=== PATIENT | male | born 1965 | race Caucasian/White ===

== ENCOUNTER 2019-06-17 15:25 | Emergency (ER) | payer OTHER, SELFPAY ==
[2019-06-17 15:43] VITALS: BP 129/89; PULSE 87; RESP 18; TEMP 37; O2SAT 99; BMI 28.8
--- NOTE | 2019-06-17 17:01 | PC.NURSE ---
Catheter flushed of small clots. Page now draining freely. Pt reports increased comfort.
[2019-06-17 17:06] VITALS: BP 122/89; PULSE 80; RESP 18; O2SAT 96
[2019-06-17 17:52] LABS: Appearance Urine UA CLOUDY; Bilirubin Urine UA NEGATIVE (NEGATIVE); Color Urine UA YELLOW; Glucose Urine UA NEGATIVE (Negative); Ketones Urine UA NEGATIVE (NEGATIVE); Leukocyte Esterase Urine UA 2+ (NEGATIVE); Nitrite Urine UA POSITIVE (Negative); Occult Blood Urine UA 3+ (Negative); Protein Urine UA 2+ (Negative); Urobilinogen Urine UA 0.2 E.U./dL (0.2); pH Urine UA 5.5 (4.5-8.0)
[2019-06-17 18:00] LABS: Bacteria Urine Few (2-10); Culture Indicated Urine Specimen Cultured; RBC Urine 30-100/HPF (0-5/HPF); Squamous Epithelial Cell Urine 1-5 /HPF (0-5/HPF); WBC Urine 30-100/HPF (0-5/HPF)
--- NOTE | 2019-06-17 22:27 | ED_ITS ---
HPI - Male Genitourinary <IVON Martinez - Last Filed: 06/17/19 23:04> General Chief complaint: Urogenital-Male Stated complaint: surgical catheter he thinks is plugged Time Seen by Provider: 06/17/19 17:23 Source: patient Mode of arrival: Family Vehicle Limitations: no limitations History of Present Illness HPI Narrative: This is a 54-year-old gentleman, nonsmoker, who presents to ED with spouse with chief complain of urinary retention and discomfort. The patient reports had prostate surgery calls, Rezum procedure 6 weeks ago at [facility] by Dr. Mahoney. He was treated with 3 rounds of antibiotic medication for prostatitis in the past. Two days ago his previous indwelling Page catheter has removed and new 1 has been inserted for difficulty with draining. Patient reports each time the new Page catheter is inserted, patient has hematuria initially. Afterwards, patient usually has very dark urine with some sediment. Patient denies fever, chills, nausea or vomiting or flank pain. Patient noticed not well draining Page catheter and a leg bag with red clots and flakes today with severe bladder discomfort. Patient reports had for 5 UA test has been done in the past with each time showing no growth from urine culture. Patient has a history of kidney stone which he needed lithotripsy surgery. Patient denies any recent kidney function test. When patient was evaluated his Page catheter has been irrigated by nursing staff after bladder scan has been done and showing about 400 mL of urine in his bladder. After this, the Page catheter has been draining well with slightly darker urine. Related Data Home Medications Medication Instructions Recorded Confirmed cyclobenzaprine 5 mg PO TID PRN 06/17/19 06/17/19 hydromorphone 3 mg SD SEE INSTRUCTIONS PRN 06/17/19 lorazepam 1 mg PO TID PRN 06/17/19 06/17/19 tamsulosin 0.8 mg PO DAILY 06/17/19 06/17/19 Previous Rx's Medication Instructions Recorded rizatriptan 10 mg tablet 10 mg PO ONCE #10 tab 12/14/18 Allergies Allergy/AdvReac Type Severity Reaction Status Date / Time turner Allergy Mild ITCHING Verified 06/17/19 15:52 Review of Systems <IVON Martinez - Last Filed: 06/17/19 23:04> Review of Systems Narrative: General: Denies fever, chills, fatigue, malaise, sweats. HEENT: Denies sinus pain, ear pain, sore throat, difficulty swallowing, dizziness. Respiratory: Denies dyspnea, cough, wheezing, hemoptysis, sputum. Cardiovascular: Denies chest pain, palpitations, orthopnea, edema. Gastrointestinal: Denies nausea, vomiting, abdominal pain, diarrhea, constipation, melena. : See HPI Musculoskeletal: Denies weakness, joint pain or bony pain. Skin: Denies rash, skin lesions, or other. Neurologic: Denies weakness, headache, numbness, change in speech, confusion, seizures, incoordination. Psychiatric: No concerning psychosocial issues. 12-point review of systems is negative except for those stated above. Patient History <IVON Martinez - Last Filed: 06/17/19 23:04> Medical History Bladder stone (Acute) Kidney stone (Acute) Surgical History H/O lithotripsy (Acute) History of prostate surgery (Acute) Social History Smoking Status: Never smoker Smoking Status: Never smoker alcohol intake frequency: 0-2 drinks per day Substance Use Type: marijuana Exam <IVON Martinez - Last Filed: 06/17/19 23:04> Narrative Exam Narrative: General appearance: well developed, well nourished, in no acute distress. Head: normocephalic, atraumatic, no scalp lesions, non-tender. ENT: Bilateral auditory canals and tympanic membranes clear. Hearing grossly intact. Nose without bleeding, purulent discharge, septal hematoma or deviation. Turbinate without erythema or swelling. Facial sinuses nontender to palpate. Mucous membrane moist, no mucosal lesion. Throat without erythema, tonsillar hypertrophy or exudate. Uvula in midline, airway patent. Neck/Thyroid: neck supple, full range of motion, no visible masses or meningeal signs. No JVD, non-tender without lymphadenopathy. Skin: no suspicious rashes, lesions over visible areas. Warm and dry and appropriate color for ethnicity. Heart: no clubbing, no cyanosis, no edema. S1 and S2 normal. RRR w/o murmurs, clicks, or bruits. Lungs: Breathing even and unlabored. No stridor. No accessory muscles used. Able to speak in full sentences. Chest: normal shape and expansion. Abdomen: non-obese, non-distended. Back: No CVA or flank pain. Neurologic: alert and oriented. Cognitive exam, ASSISTANCE REPRESENTATIVE and PNS grossly intact on informal exam. Psych: good eye contact, normal affect. Initial Vital Signs Initial Vital Signs: Vital Signs Temperature 98.6 F 06/17/19 15:43 Pulse Rate 87 06/17/19 15:43 Respiratory Rate 18 06/17/19 15:43 Blood Pressure 129/89 06/17/19 15:43 Pulse Oximetry 99 06/17/19 15:43 <Frida Schmid DO - Last Filed: 06/18/19 08:05> Initial Vital Signs Initial Vital Signs: Vital Signs Temperature 98.6 F 06/17/19 15:43 Pulse Rate 87 06/17/19 15:43 Respiratory Rate 18 06/17/19 15:43 Blood Pressure 129/89 06/17/19 15:43 Pulse Oximetry 99 06/17/19 15:43 Scores <IVON Martinez - Last Filed: 06/17/19 23:04> GCS [place] coma scale eye opening: Spontaneous [place] coma scale verbal response: Orientated [place] coma scale motor response: Obey commands [place] coma scale total score: 15 Course <IVON Martinez - Last Filed: 06/17/19 23:04> Orders Ordered: ED Orders 06/17/19 17:44 Urinalysis and Microscopic Stat Urine Culture Stat Vital Signs Vital signs: Vital Signs - 8 hr 06/17/19 15:43 06/17/19 17:06 Temperature 98.6 F Pulse Rate 87 80 Respiratory Rate 18 18 Blood Pressure 129/89 Blood Pressure [Left Arm] 122/89 Pulse Oximetry 99 96 <Frida Schmid DO - Last Filed: 06/18/19 08:05> Orders Ordered: ED Orders 06/17/19 17:44 Urinalysis and Microscopic Stat Urine Culture Stat Vital Signs Vital signs: Vital Signs - 8 hr 06/17/19 15:43 06/17/19 17:06 Temperature 98.6 F Pulse Rate 87 80 Respiratory Rate 18 18 Blood Pressure 129/89 Blood Pressure [Left Arm] 122/89 Pulse Oximetry 99 96 MDM - Male Genitourinary <IVON Martinez - Last Filed: 06/17/19 23:04> Differential Diagnosis Differential diagnosis: Likely urinary tract infection and acute retention of urine Medical Records Attestation: I reviewed the patient's medical records. Lab Data Attestation: I reviewed the patient's lab results. Labs: Lab Results 06/17/19 Range/Units 17:44 Urine Color Yellow Urine Appearance Cloudy Urine pH 5.5 (4.5-8.0) Ur Specific [place] 1.010 (1.000-1.035) Urine Protein 2+ H (Negative) Urine Glucose (UA) Negative (Negative) g/dL Urine Ketones Negative (NEGATIVE) Urine Occult Blood 3+ H (Negative) Urine Nitrate Positive (Negative) Urine Bilirubin Negative (NEGATIVE) Urine Urobilinogen 0.2 (0.2) E.U./dL Ur Leukocyte Esterase 2+ H (NEGATIVE) Urine RBC 30-100/hpf H (0-5/HPF) Urine WBC 30-100/hpf H (0-5/HPF) Ur Squamous Epith Cells 1-5 /hpf (0-5/HPF) Urine Bacteria Few (2-10) H (None) Ur Culture Indicated? Specimen cultured MDM Narrative Medical decision making narrative: This is a 54-year-old gentleman who presents to ED with indwelling Page catheter and leg bag which has not been draining well with bladder discomfort. Patient has a history of prostatitis and had surgery, Rezum, procedure at [facility] by Dr. Mahoney, urolgoist about 6 wks ago. Patient had new indwelling Page catheter inserted 2 days ago due to catheter obstruction. Since then, patient has had increasing blood clots, sediments, dark urine. Patient denies constitutional symptoms or flank pain. Patient's Page catheter had irrigated by nursing staff after bladder scanner showed about 400 mL of urine in the bladder. Patient reports relief of discomfort and draining slightly dark colored urine in Page bag. Patient declined kidney function test today stating has a follow-up appointment with Dr. Mahoney on 06/28/2019. Patient and spouse have been managing and changing leg back to Page bag during nights using aseptic technique. Patient requesting to dis charge to home with Page catheter irrigation kit. I discussed in detail that aseptic technique is to be utilized for this to prevent severe bladder infection and to use sterile water for this. Patient and spouse verbalized understanding. Urine sample from leg bag has been obtained and sent out to lab for formal UA and culture at the time of dicharge. Urine culture is pending and patient was i nformed that he will get a phone call if urine culture comes back positive and needs antibiotic medication treatment and patient verbalized understanding. Strict return precautions were discussed with the patient and advised to follow up with urologist, Dr. Mahoney as scheduled. Patient and spouse verbalized understanding and agrees with the treatment plan. Addendum: UA test shows +nitrate and 2+ leukocytes, 30-100/hpf of WBC and RBC. <Frida Schmid, - Last Filed: 06/18/19 08:05> Lab Data Labs: Lab Results 06/17/19 Range/Units 17:44 Urine Color Yellow Urine Appearance Cloudy Urine pH 5.5 (4.5-8.0) Ur Specific [place] 1.010 (1.000-1.035) Urine Protein 2+ H (Negative) Urine Glucose (UA) Negative (Negative) g/dL Urine Ketones Negative (NEGATIVE) Urine Occult Blood 3+ H (Negative) Urine Nitrate Positive (Negative) Urine Bilirubin Negative (NEGATIVE) Urine Urobilinogen 0.2 (0.2) E.U./dL Ur Leukocyte Esterase 2+ H (NEGATIVE) Urine RBC 30-100/hpf H (0-5/HPF) Urine WBC 30-100/hpf H (0-5/HPF) Ur Squamous Epith Cells 1-5 /hpf (0-5/HPF) Urine Bacteria Few (2-10) H (None) Ur Culture Indicated? Specimen cultured Discharge Plan Departure Patient Disposition: Home Clinical Impression: Obstruction of indwelling urinary catheter Qualifiers: Encounter type: initial encounter Qualified Code(s): T83.091A - Other mechanical complication of indwelling urethral catheter, initial encounter Discharge Date/Time: 06/17/19 17:58 Instructions: How to Care for Your Page Catheter -- Male Activity Restrictions/Additional Instructions: You have been diagnosed with [indwelling Page catheter obstruction. After the irrigation, your symptoms have improved.]. What to do: *Take your medications as directed. No new medications to go home with. As we discussed, please take precautions to prevent infection when you have to irrigate Page catheter at home as needed for no urine output for prolonged time with bladder discomfort. We will send you home with irrigation kit for home use. Please use a sterile water for this. You'll get a phone call if urine culture comes back positive for treatment with antibiotic medication. *Follow up with your primary care provider in 2-3 days, call for an appointment. Otherwise, please follow-up with urologist at [facility] as scheduled. Let them know you were seen in the ED and that we asked you to be seen in follow up. At some point, please follow up with your doctor for kidney function test which you declined today. *Return to ED if you have any new, worsening, or concerning symptoms, such as [increasing pain, fever, chills, nausea or vomiting, unable to tolerate fluids, or any acute concerns]. Prescriptions: No Action rizatriptan 10 mg tablet 10 mg PO ONCE Qty: 10 RF: 0 tamsulosin 0.4 mg capsule 0.8 mg PO DAILY RF: 0 lorazepam 1 mg tablet 1 mg PO TID PRN (Reason: pain) RF: 0 cyclobenzaprine 5 mg tablet 5 mg PO TID PRN (Reason: pain) RF: 0 hydromorphone 3 MG suppository 3 mg SD SEE INSTRUCTIONS PRN (Reason: as directed) RF: 0 Referrals: Pacheco Thomas MD [Primary Care Provider] -
== END 2019-06-17 17:58 | disposition home or self-care (01) ==
PROVIDERS: Emergency Provider Nurse Practitioner Family; Family Provider Family Medicine; PCP Family Medicine
DX: T83.091A Other mechanical complication of indwelling urethral catheter, initial encounter (principal)
CPT/HCPCS: 51700; 51798; 81001; 87077; 87086; 87147; 87186; 99283; 99284

== ENCOUNTER 2019-07-07 11:14 | Emergency (ER) | payer OTHER, SELFPAY ==
[2019-07-07 11:20] VITALS: BP 177/98; PULSE 83; RESP 18; TEMP 37.1; O2SAT 100; BMI 28.8
--- NOTE | 2019-07-07 11:49 | PC.NURSE ---
Doris arrives with indwelling cath in place. Patient reports leaking around catheter this morning. Concerns of catheter not working properly. tried flushing at home. Bladder scan shower approx 57ml in bladder. Irrigated and able to get fluid back, light pink blood tinged. Patient denies a sense of retention I feel a slight urge to go over the last few day
[2019-07-07 12:34] VITALS: BP 160/72; PULSE 68; RESP 16; O2SAT 99
--- NOTE | 2019-07-07 18:42 | ED_ITS ---
HPI - Male Genitourinary General Chief complaint: Urogenital-Male Stated complaint: cath is plugged Time Seen by Provider: 07/07/19 11:19 Source: patient and family Mode of arrival: Family Vehicle Limitations: no limitations History of Present Illness HPI Narrative: 54-year-old male nondrinker with extensive urologic history and urology at both [facility] in [facility] presents with a Page catheter in place stating that it has been difficult to drain and after multiple attempts to flush little urine comes out. The patient otherwise feels fine and denies any nausea, vomiting or fever or chills. He states that he frequently gets bladder irritation resulting in clot formation as a consequence of taking migraine medications which he recently did. MD Complaint: other Onset (ago): hour(s) Duration: constant Severity: mild Associated symptoms: Reports denies other symptoms Related Data Home Medications Medication Instructions Recorded Confirmed cyclobenzaprine 5 mg PO TID PRN 06/17/19 07/07/19 hydromorphone 3 mg MA SEE INSTRUCTIONS PRN 06/17/19 lorazepam 1 mg PO TID PRN 06/17/19 06/17/19 tamsulosin 0.8 mg PO DAILY 06/17/19 07/07/19 sulfamethoxazole-trimethoprim 1 tab PO BID 07/07/19 07/07/19 Previous Rx's Medication Instructions Recorded rizatriptan 10 mg tablet 10 mg PO ONCE #10 tab 12/14/18 Allergies Allergy/AdvReac Type Severity Reaction Status Date / Time turner Allergy Mild ITCHING Verified 07/07/19 11:36 sulfamethoxazole AdvReac Migraine Verified 07/07/19 11:36 [From Bactrim] trimethoprim [From Bactrim] AdvReac Migraine Verified 07/07/19 11:36 Review of Systems Constitutional Constitutional: Denies chills, Denies fatigue, Denies fever(s), Denies frequent falls, Denies lethargy and Denies weakness Eyes Eyes: Denies change in vision, Denies eye discharge, Denies irritation and Denies loss of vision ENT Ears, Nose, Mouth, and Throat: Denies change in voice, Denies dizziness, Denies neck pain, Denies sore throat and Denies throat swelling Cardiovascular Cardiovascular: Denies chest pain, Denies irregular heart rhythm, Denies lightheadedness, Denies palpitations, Denies dyspnea, Denies dyspnea on exertion and Denies orthopnea Respiratory Respiratory: Denies cough, Denies dyspnea, Denies dyspnea on exertion and Denies wheezing Gastrointestinal Gastrointestinal: Denies abdominal pain, Denies change in bowel habits, Denies diarrhea, Denies nausea and Denies vomiting Genitourinary Genitourinary: Denies hematuria, Denies flank pain, Denies urinary incontinence and Denies urinary urgency Comments: Page catheter problem Musculoskeletal Musculoskeletal: Denies back pain, Denies muscle weakness, Denies neck pain, Denies numbness and Denies tingling Integumentary/Breasts Skin/Breast: Denies pruritus, Denies erythema, Denies rash and Denies wounds Neurologic Neurologic: Denies behavioral changes, Denies confusion, Denies dizziness, Denies frequent falls, Denies loss of vision, Denies numbness, Denies tingling and Denies weakness Psychiatric Psychiatric: Denies anxiety, Denies behavioral changes, Denies confusion, Denies depression, Denies homicidal ideation and Denies suicidal ideation Endocrine Endocrine: Denies fatigue, Denies flushing and Denies palpitations Hematologic/Lymphatic Hematologic/Lymphatic: Denies easy bruising Allergic/Immunologic Allergic/Immunologic: Denies urticaria, Denies throat swelling and Denies wheezing Patient History Medical History Bladder stone (Acute) Kidney stone (Acute) Surgical History H/O lithotripsy (Acute) History of prostate surgery (Acute) Social History Smoking Status: Never smoker Smoking Status: Never smoker alcohol intake frequency: 0-2 drinks per day Substance Use Type: marijuana Exam Narrative Exam Narrative: GEN: AOx3 and in mild distress, 54-year-old appears stated age EYES: Pupils are equal, round, and reactive to light and accommodation. Extraoccular muscles are intact bilaterally. There is no subconjunctival hemorrhage or exudate. CHEST: Lungs are clear to auscultation bilaterally and free of wheezes, rales, or rhonchi. Heart rate is regular rhythm, there are no murmurs, clicks, rubs, or gallops. There is no chest wall tenderness. ABD: Abdomen is soft and nontender. There is no guarding or rebound. Bowel sounds are normal in all 4 quadrants. There is no mass or organomegaly. Page catheter in place. Bladder scan notes 50 mL. Nursing has a 1-1 return of fluid in the Page out after flushing. EXT: Full painless ROM of all extremities with no loss of sensation or strength. SKIN: Warm, pink, and dry. No erythema or rash Initial Vital Signs Initial Vital Signs: Vital Signs Temperature 98.7 F 07/07/19 11:20 Pulse Rate 83 07/07/19 11:20 Respiratory Rate 18 07/07/19 11:20 Blood Pressure 177/98 H 07/07/19 11:20 Pulse Oximetry 100 07/07/19 11:20 Course Course Course Narrative: A called the patient's urologist at [facility] to discuss how they would wish us to proceed. After lengthy discussion of patient's history and physical (they know him well). They suggest no further action but instead give the patient reassurance and wished to see him in the office as planned on Thursday. Patient and are in complete agreement and understanding of the plan. They've had return precautions given and questions answered to their apparent satisfaction Vital Signs Vital signs: Vital Signs - 8 hr 07/07/19 11:20 07/07/19 12:34 Temperature 98.7 F Pulse Rate 83 68 Respiratory Rate 18 16 Blood Pressure 177/98 H 160/72 H Pulse Oximetry 100 99 Discharge Plan Departure Patient Disposition: Home Clinical Impression: Page catheter problem Qualifiers: Encounter type: initial encounter Qualified Code(s): T83.9XXA - Unspecified complication of genitourinary prosthetic device, implant and graft, initial encounter Discharge Date/Time: 07/07/19 12:34 Instructions: How to Care for Your Page Catheter -- Male Activity Restrictions/Additional Instructions: *You have been diagnosed with [Page catheter problem] *What to do: * continue to take medications as directed *Follow up with your urologist on Thursday as planned *Return to ER if you should have any new, worsening or concerning symptoms Prescriptions: No Action rizatriptan 10 mg tablet 10 mg PO ONCE Qty: 10 RF: 0 tamsulosin 0.4 mg capsule 0.8 mg PO DAILY RF: 0 lorazepam 1 mg tablet 1 mg PO TID PRN (Reason: pain) RF: 0 cyclobenzaprine 5 mg tablet 5 mg PO TID PRN (Reason: pain) RF: 0 hydromorphone 3 MG suppository 3 mg MA SEE INSTRUCTIONS PRN (Reason: as directed) RF: 0 sulfamethoxazole-trimethoprim 800-160 mg tablet 1 tab PO BID RF: 0
== END 2019-07-07 12:34 | disposition home or self-care (01) ==
PROVIDERS: Emergency Provider Emergency Medicine; Family Provider Family Medicine
DX: T83.9XXA Unspecified complication of genitourinary prosthetic device, implant and graft, initial encounter (principal)
CPT/HCPCS: 51700; 51798; 99284

== ENCOUNTER → 2022-09-02 10:47 | Outpatient (CLI) | payer OTHER, MEDICAID, SELFPAY ==
[2022-09-02 11:26] LABS: Add Manual Diff / Slide Review NO; Basophils Absolute Auto 100 /uL (0-100); Basophils Percent Auto 0.9 % (0-2); Eosinophils Absolute Auto 300 /uL (0-450); Eosinophils Percent Auto 4.9 % (2-4); Hematocrit 45.8 % (41-53); Hemoglobin 15.3 g/dL (13.5-17.5); Lymphocytes Absolute Auto 2800 /uL (1100-4500); Lymphocytes Percent Auto 40.9 % (25-40); Mean Corpuscular HGB Conc 33.4 % (30-36); Mean Corpuscular Hemoglobin 28.9 PG (26-34); Mean Corpuscular Volume 86.3 fL (80-100); Monocytes Absolute Auto 500 /uL (0-900); Monocytes Percent Auto 6.6 % (3-14); Neutrophils Absolute Auto 3200 /uL (1500-7000); Neutrophils Percent Auto 46.7 % (50-75); Platelet Count 185 X10^3/uL (150-400); Red Blood Cell Count 5.31 X10^6/uL (4.5-5.9); White Blood Cell Count 6.8 X10^3/uL (4.5-11.0)
[2022-09-02 11:37] LABS: Hemoglobin A1C% w Est Avg Glu 5.4 % (4.0-6.0)
[2022-09-02 11:58] LABS: Alanine Aminotransferase 35 IU/L (<50); Albumin 4.4 g/dL (3.5-5.0); Albumin Globulin Ratio 1.7 (1.0-2.8); Alkaline Phosphatase 68 U/L (38-126); Aspartate Aminotransferase 30 IU/L (17-59); BUN Creatinine Ratio 18.2 (6-22); Bilirubin Total 1.7 mg/dL (0.2-1.3); Blood Urea Nitrogen 18 mg/dL (9-20); Calcium 9.1 mg/dL (8.4-10.2); Carbon Dioxide 28 mmol/L (22-32); Chloride 103 mmol/L (98-107); Cholesterol 230 mg/dL (140-199); Estimated Glomerular Filt Rate > 60 mL/min (>60); Globulin 2.6 g/dL (1.7-4.1); Glucose 88 mg/dL (70-100); HDL Cholesterol 41 mg/dL (40-60); HEMOLYSIS < 15 (0-50); LDL Cholesterol Calculated 165 mg/dL (<100); Potassium 4.1 mmol/L (3.4-5.1); Sodium 138 mmol/L (137-145); Triglycerides 118 mg/dL (35-150)
[2022-09-02 12:07] LABS: Creatinine Urine Random 232.6 mg/dL
[2022-09-02 12:10] LABS: Microalbumi Creatinin Ratio Ur 3.4 ug/mg CR (<30); Microalbumin Urine Random 0.8 mg/dL (0-1.6)
== END ==
PROVIDERS: Family Provider Family Medicine; PCP Family Medicine; Referring Provider Family Medicine; Visit Provider Family Medicine
DX: C61 Malignant neoplasm of prostate (principal); F43.20 Adjustment disorder, unspecified; N40.0 Benign prostatic hyperplasia without lower urinary tract symptoms
CPT/HCPCS: 36415; 80053; 80061; 82043; 82570; 83036; 85025

== ENCOUNTER 2023-08-11 10:03 | Day surgery (SDC) | payer OTHER, MEDICAID, SELFPAY ==
[2023-08-11] MEDS: LACTATED RINGERS 1,000 ML 42 ML IV (11:01)
[2023-08-11 11:10] VITALS: BP 145/86; PULSE 73; RESP 17; TEMP 36.5; O2SAT 97
--- NOTE | 2023-08-11 11:27 | PM.HP.1 ---
History of Present Illness History of Present Illness Date Patient Seen: 08/11/23 Time Patient Seen: 11:27 Chief complaint: SDC Narrative: 58-year-old man personal history of colonic polyps here for screening colonoscopy. Last colonoscopy 5 years ago significant for polyps. No abdominal concerns today. History of prostatectomy. COUNT INCLUD[facility] Medical History Foot pain (~2020) Chickenpox Elevated PSA (~2020) Gilbert syndrome Adjustment disorder Migraines (~1986) Prostate cancer (~2020) BPH (benign prostatic hyperplasia) Bladder stone Kidney stone Surgical History H/O lithotripsy (~2017) History of prostate surgery (~2019) Social History Smoking Status: Never smoker alcohol intake: never Meds Home Medications and Allergies Home Medications Medication Instructions Recorded Confirmed Type rizatriptan 10 mg tablet 10 mg PO ONCE #10 tabs 12/14/18 08/11/23 Rx tamsulosin 0.4 mg capsule 0.8 mg PO DAILY 06/17/19 08/11/23 History Allergies Allergy/AdvReac Type Severity Reaction Status Date / Time turner Allergy Mild ITCHING Verified 08/11/23 11:02 sulfamethoxazole AdvReac Migraine Verified 08/11/23 11:02 [From Bactrim] trimethoprim [From Bactrim] AdvReac Migraine Verified 08/11/23 11:02 Exam Vital Signs (past 8 hours): - 08/11/23 11:10 Temperature 97.7 F Pulse Rate 73 Respiratory Rate 17 Blood Pressure 145/86 H Pulse Oximetry 97 Oxygen Delivery Method Room Air Oxygen Delivery Method Room Air Narrative Exam Narrative: General adult man alert oriented no acute distress Chest nonlabored respiration Extremities warm well perfused Assessment & Plan Assessment & Plan narrative: The patient requires colorectal screening and colonoscopy is recommended. Technical details were discussed. Risks, benefits, alternatives explained. Risks including but not limited to myocardial infarction, aspiration, bleeding, pain, missed lesion, incomplete examination, need for further radiographic studies, colonic perforation, and need for major abdominal surgery were discussed. All questions were answered to their satisfaction, and they are in agreement with this plan.
--- NOTE | 2023-08-11 11:55 | P.OP.COLON_ITS ---
Operative Date/Time/Diagnoses Date of procedure: 08/11/23 Time of procedure: 11:55 Pre-op diagnosis: Personal history of colonic polyps Procedure & Clinicians Study performed: Colonoscopy Same procedure as scheduled: Yes Indications: Personal history of colonic polyps Colorectal screening Surgeon: Tramaine Rendon Procedure Notes Procedure in detail: The history and physical was performed/updated and the patient is ASA class is 2. The procedure was discussed in detail with the patient. Potential risks complications including infection, bleeding, missed diagnosis, perforation, need for surgery, and were explained. Their questions were answered and informed consent was obtained. Patient was brought to the procedure room and placed standard monitoring equipment. The patient's vital signs were monitored continuously throughout the entire procedure. Prior to starting time-out was performed. The patient was placed in the left lateral recumbent position. Procedural sedation was administered by anesthesia. Examination began with a thorough inspection of the perianal area there was no evidence of fissures, fistulae, external hemorrhoids or cutaneous malignancy. The colonoscopy scope was then placed into the anal canal and was advanced to the cecum, which was identified by the ileocecal valve, the appendiceal orifice and the confluence of the taenia. The scope was then slowly withdrawn examining colon thoroughly in all directions, irrigating it of any residual stool. The scope was retroflexed within the rectum The patient tolerated the procedure well. They will be discharged once criteria are met. The prep was of good/excellent quality. The withdrawl time was 6 minutes. FINDINGS * Normal healthy colon. No masses polyps or inflammation. Specimen(s): none sent Impression: Normal colonoscopy Post-procedure Recommendations: Colonoscopy in 5 years (For history of colonic polyps) Disposition: same day surgery
[2023-08-11 11:59] VITALS: BP 125/85; PULSE 75; RESP 16; TEMP 36.6; O2SAT 93
[2023-08-11 12:04] VITALS: BP 122/80; PULSE 74; RESP 18; O2SAT 93
[2023-08-11 12:09] VITALS: BP 118/79; PULSE 66; RESP 18; O2SAT 96
[2023-08-11 12:13] VITALS: BP 118/83; PULSE 70; RESP 18; O2SAT 97
[2023-08-11 12:18] VITALS: BP 117/83; PULSE 75; RESP 12; TEMP 36.7; O2SAT 96
== END 2023-08-11 12:25 | disposition home or self-care (01) ==
PROVIDERS: Family Provider Family Medicine; PCP Family Medicine; Referring Provider Surgery; Visit Provider Surgery
PROC: 0DJD8ZZ Inspection of Lower Intestinal Tract, Via Natural or Artificial Opening Endoscopic (ICD-10-PCS; CPT 45378; principal; 2023-08-11 11:00)
DX: Z12.11 Encounter for screening for malignant neoplasm of colon (principal); Z86.010 Personal history of colon polyps
CPT/HCPCS: 45378; J2704

== ENCOUNTER → 2024-08-10 16:24 | Outpatient (CLI) | payer OTHER, SELFPAY ==
[2024-08-10 16:57] LABS: Add Manual Diff / Slide Review NO; Basophils Absolute Auto 100 /uL (0-100); Eosinophils Absolute Auto 200 /uL (0-450); Eosinophils Percent Auto 2.3 % (2-4); Hematocrit 47.1 % (41-53); Hemoglobin 15.8 g/dL (13.5-17.5); Lymphocytes Absolute Auto 3200 /uL (1100-4500); Lymphocytes Percent Auto 36.6 % (25-40); Mean Corpuscular HGB Conc 33.6 % (30-36); Mean Corpuscular Hemoglobin 29.2 PG (26-34); Monocytes Absolute Auto 700 /uL (0-900); Monocytes Percent Auto 7.7 % (3-14); Neutrophils Absolute Auto 4600 /uL (1500-7000); Neutrophils Percent Auto 52.4 % (50-75); Platelet Count 202 X10^3/uL (150-400); Red Blood Cell Count 5.41 X10^6/uL (4.5-5.9); Red Cell Distribution Width 13.5 % (11.6-14.8); White Blood Cell Count 8.9 X10^3/uL (4.5-11.0)
[2024-08-10 17:25] LABS: Alanine Aminotransferase 36 IU/L (<50); Albumin 4.7 g/dL (3.5-5.0); Albumin Globulin Ratio 1.7 (1.0-2.8); Alkaline Phosphatase 64 U/L (38-126); Aspartate Aminotransferase 31 IU/L (17-59); BUN Creatinine Ratio 12.9 (6-22); Bilirubin Total 1.4 mg/dL (0.2-1.3); Blood Urea Nitrogen 15 mg/dL (9-20); Calcium 9.4 mg/dL (8.4-10.2); Carbon Dioxide 28 mmol/L (22-32); Chloride 105 mmol/L (98-107); Estimated Glomerular Filt Rate > 60 mL/min (>60); Globulin 2.8 g/dL (1.7-4.1); Glucose 87 mg/dL (70-100); HEMOLYSIS < 15 (0-50); Potassium 3.8 mmol/L (3.4-5.1); Sodium 139 mmol/L (137-145); Total Protein 7.5 g/dL (6.3-8.2)
== END ==
PROVIDERS: Family Provider Family Medicine; PCP Family Medicine; Referring Provider Physician Assistant; Visit Provider Physician Assistant
DX: L65.9 Nonscarring hair loss, unspecified (principal)
CPT/HCPCS: 36415; 80053; 84443; 85025